=== PATIENT | male | born 1950 | race Two or more races ===

== ENCOUNTER 2016-09-21 21:42 | Emergency (ER) | payer MEDICARE, OTHER ==
[~2016-09-21] VITALS: Ht 175.3 cm; Wt 68.0 kg
--- NOTE | 2016-09-21 21:42 | NUR ---
TO BED 4 BIB PARAMEDICS C/O HEROIN OVERDOSE. PT WAS GIVEN NARCAN 2MG IVP BY EMS FLOWER GRADER. RECEIVE PT AAOX4 NO ACUTE DISTRESS NOTED, RESP EVEN AND UNLABORED. PLACE PT ON CARDIAC MONTINUOUS POX, O2@15L/NONREBREATHER MASK. PENDING ER MD SHAW.
--- NOTE | 2016-09-21 22:29 | NUR ---
PLACE PT ON O2@2L/NC PER ER MD ORDER. WILL CONTINUE TO MONITOR PT CLOSELY
[2016-09-21 23:44] LABS: CALCIUM, SERUM 8.9 mg/dL (8.5-10.1); CARBON DIOXIDE 29 mmol/L (21-32); CHLORIDE 106 mmol/L (98-107); CREATININE 1.7 mg/dL (0.6-1.3); GLUCOSE 115 mg/dL (74-106); POTASSIUM 4.8 mmol/L (3.5-5.1); SODIUM SERUM 142 mmol/L (136-145); UREA NITROGEN, BLOOD 22 mg/dL (7-18)
[2016-09-21 23:48] LABS: ALANINE AMINOTRANSFERASE 19 U/L (12-78); ALBUMIN 3.9 g/dL (3.4-5.0); ALCOHOL, BLOOD < 3 mg/dL (0-0); ALKALINE PHOSPHATASE 113 U/L (46-116); ASPARTATE AMINOTRANSFERASE 18 U/L (15-37); BILIRUBIN,TOTAL 0.1 mg/dL (0.2-1.0); HEMATOCRIT 32 % (39-51); HEMOGLOBIN 10.6 g/dL (13.5-17.5); MEAN CORPUSCULAR VOLUME 90 fL (80-96); RED BLOOD CELL COUNT(AUTO) 3.56 MIL/uL (4.5-6.0); WHITE BLOOD COUNT (AUTO) 8.4 K/uL (4.3-11.0)
[2016-09-21 23:49] LABS: ACETAMINOPHEN 0 ug/ml (10-30); BASOPHILS % (AUTO) 0.3 % (0.0-2.0); EOSINOPHILS % (AUTO) 0.4 % (0.0-6.0); LYMPHOCYTES % (AUTO) 7.1 % (20.0-44.0); MEAN CORPUSCULAR HEMOGLOBIN 30 PG (26.0-33.0); MEAN CORPUSCULAR HGB CONC 33 g/dl (31.0-36.0); MONOCYTES % (AUTO) 6.2 % (2.0-12.0); PLATELET COUNT (AUTO) 142 /CMM (150-450); RDW COEFFICIENT OF VARIATION 15.5 (11.5-15.0); SALICYLATE 1.4 mg/dL (2.8-20.0)
--- NOTE | 2016-09-21 23:55 | NUR ---
URINE SAMPLE COLLECTED AND SENT TO LAB.
--- NOTE | 2016-09-22 00:03 | NUR ---
PT AAOX4 NO ACUTE DISTRESS NOTED, RESP EVEN AND UNLABORED/ PT DENIES PAIN OR DISCOMFORT AT THIS TIME.
[2016-09-22 00:17] LABS: APPEARANCE,URINE CLOUDY (CLEAR)
[2016-09-22 00:18] LABS: BILIRUBIN,URINE NEGATIVE (NEGATIVE); COLOR,URINE YELLOW (YELLOW); KETONES,URINE NEGATIVE (NEGATIVE); UGLUCOSE NEGATIVE (NEGATIVE); UROBILINOGEN,URINE 0.2 EU/dL (0.2)
[2016-09-22 00:19] LABS: LEUKOCYTE ESTERASE ,URINE 2+ (NEGATIVE)
[2016-09-22 00:20] LABS: NITRITE, URINE NEGATIVE (NEGATIVE); PROTEIN,URINE TRACE mg/dl (NEGATIVE)
[2016-09-22 00:21] LABS: BLOOD, URINE TRACE Ery/uL (NEGATIVE)
[2016-09-22 00:24] LABS: BACTERIA,URINE 3+ /HPF (None Seen); SQUAMOUS EPITHELIAL CELL,UR Few /HPF (None Seen)
--- NOTE | 2016-09-22 01:48 | NUR ---
PT APPEARS ASLEEP, NO ACUTE DISTRESS NOTED, RESP EVEN AND UNLABORED. CALL LIGHT WITHIN REACH. WILL CONTINUE TO MONITOR PT CLOSELY.
--- NOTE | 2016-09-22 03:02 | NUR ---
SPOKE TO SHAD, DIVERSIFIED [employer] [phone]. ETA 1 HR ASSEMBLER SHOW MOTOR.
--- NOTE | 2016-09-22 03:39 | NUR ---
IV removed. Catheter intact and site benign. Pressure and 4x4 applied to site. No bleeding noted. Patient discharged to home in stable condition. Written and verbal after care instructions given. Patient verbalizes understanding of instruction. pt aaox4 no acute distress noted, resp even and unlabored. facility stripper preliminary barbara at bedside to take pt home.
[2016-09-22 03:42] VITALS: BP 115/83
== END 2016-09-22 03:43 | disposition home or self-care (01) ==
LOC: ER 21:44
DX: T40.1X1A Poisoning by heroin, accidental (unintentional), initial encounter (principal); N39.0 Urinary tract infection, site not specified; Y92.89 Other specified places as the place of occurrence of the external cause
CPT/HCPCS: 36415; 71010; 80048; 80076; 80305; 80329; 81001; 82962; 85025; 87077; 87086; 87186; 93005; 99285; A4606; G0480 ×2; 81000-TC; Z7610